=== PATIENT | female | born 1980 | race Caucasian/White ===

== ENCOUNTER 2023-05-20 02:20 | Emergency (ER) | payer BC ==
[2023-05-20] MEDS ORDERED: Diazepam 5 MG TAB ONE (04:18)
[2023-05-20] MEDS ORDERED: Ketorolac Tromethamine 30 MG/ML VIAL ONE (04:18)
== END 2023-05-20 04:55 | disposition home or self-care (01) ==
LOC: ERS 02:20
DX: M54.41 Lumbago with sciatica, right side (principal)
CPT/HCPCS: 96372; 99283; J1885